=== PATIENT | male | born 1950 | race Asian ===

== ENCOUNTER → 2018-04-19 11:35 | Outpatient (CLI) | payer MEDICARE, MEDICAID, SELFPAY ==
--- NOTE | 2018-04-19 | DI.CT.S_ITS ---
PROCEDURE: CT CHEST WO CON INDICATIONS: PULMONARY NODULES VERES MASS TECHNIQUE: Noncontrast 5 mm thick sections acquired from the pulmonary apices to the posterior costophrenic angles. 7 mm thick coronal and sagittal MIP reformats were then acquired. For radiation dose reduction, the following was used: automated exposure control, adjustment of mA and/or kV according to patient size. COMPARISON: [facility], CT, CT CHEST WO CON, 09/15/2016, 9:07. [facility], CT, CT CHEST WO CON, 02/26/2017, 11:57. FINDINGS: Image quality: Excellent. Lungs and pleura: No acute air space opacities. The lung parenchyma is better visualized than on the most recent comparison CT from 02/26/17. The comparison CT from 09/15/16 is used as reference. There are several small pulmonary nodular radiodensities identical in appearance to those present in September of 2016. No new nodule has developed No pleural effusions or pneumothorax. Central and peripheral airways are patent and normal in caliber. Mediastinum: Heart size is normal. No pericardial effusion. No mediastinal adenopathy by size criteria. Thoracic aorta and central pulmonary arteries are normal in size. Esophagus is normal in caliber. No hiatal hernia. Bones and chest wall: No suspicious bony lesions. No vertebral body compression fractures. No axillary or supraclavicular adenopathy by size criteria. Thyroid gland is not well-visualized by this noncontrast CT. No definite lesion in that area would be suspected. Abdomen: Visualized upper abdominal solid organs and bowel loops appear normal in the absence of contrast. IMPRESSION: Stable appearance of several small benign-appearing pulmonary nodules from September 2016, no followup CT scanning is recommended for these structures. No new nodule has developed. The lung parenchyma is better visualized with reference to the prior study from 2015 than the most recent comparison CT from February of 2017 when some degree of overlying alveolar infiltration was present. Dictated by: Semaj Beverly M.D. on 04/19/2018 at 13:52 Approved by: Semaj Beverly M.D. on 04/19/2018 at 14:29
== END ==
PROVIDERS: Family Provider Family Medicine; PCP Family Medicine; Visit Provider Internal Medicine Critical Care Medicine
DX: R91.8 Other nonspecific abnormal finding of lung field (principal)
CPT/HCPCS: 71250

== ENCOUNTER 2023-09-25 23:45 | Emergency (ER) | payer MEDICARE, MEDICAID, SELFPAY ==
[2023-09-25 23:20] VITALS: BP 143/76; PULSE 98; RESP 18; TEMP 36.6; O2SAT 98
--- NOTE | 2023-09-25 23:45 | DI.RAD.S_ITS ---
PROCEDURE: XR PELVIS 1-2V INDICATIONS: pain after fall TECHNIQUE: Single view(s) of the pelvis acquired. COMPARISON: None. FINDINGS: Bones: No definite fracture. No dislocation. Subtle lucency involving the acetabular region of the left hip may be due to artifact versus nondisplaced acetabular fracture. No suspicious osseous lesions. Soft tissues: Visualized bowel gas pattern is normal. No suspicious soft tissue calcifications. IMPRESSION: No definite fracture seen. However, subtle lucencies of the left acetabular region may represent nondisplaced acetabular fractures. Consider further evaluation with CT if high clinical suspicion for fracture on the left side. Dictated by: Ricky Lanier M.D. on 09/26/2023 at 0:37 Approved by: Ricky Lanier M.D. on 09/26/2023 at 0:38
--- NOTE | 2023-09-25 23:45 | DI.CT.S_ITS ---
PROCEDURE: CT CERVICAL SPINE WO CON INDICATIONS: fall TECHNIQUE: Noncontrast 3 mm thick sections acquired from the skull base to the T4 level. Sagittal and coronal reformats were then constructed. For radiation dose reduction, the following was used: automated exposure control, adjustment of mA and/or kV according to patient size. COMPARISON: None. FINDINGS: Image quality: Excellent. Bones: No acute fractures or dislocations. No acute compression fractures of the vertebral bodies. Craniocervical junction is intact. C1-C2 relationship is preserved. Visualized superior ribs are intact. Moderate-severe multilevel cervical spondylosis with degenerative endplate changes, disc space loss, and endplate osteophyte formation. Findings are most severe at C4-5 and C5-6. There is severe spinal canal stenosis at C4-5 with moderate left greater than right bilateral neuroforaminal stenosis at this level. There is moderate spinal canal stenosis at C5-6 with mild-moderate bilateral neuroforaminal stenosis. No asymmetric widening of the posterior elements/facets. Soft tissues: Prevertebral soft tissues are normal in thickness. No paravertebral hematomas. No apical pneumothoraces. IMPRESSION: 1. CT cervical spine without acute fracture or traumatic malalignment. 2. Moderate-severe multilevel cervical spondylosis most prominent at C4-5 and C5-6 as described above. Dictated by: Ricky Lanier M.D. on 09/26/2023 at 0:40 Approved by: Ricky Lanier M.D. on 09/26/2023 at 0:44
--- NOTE | 2023-09-25 23:45 | DI.RAD.S_ITS ---
PROCEDURE: XR SHOULDER LT MIN 2V INDICATIONS: pain after fall TECHNIQUE: 2 views of the shoulder were acquired. COMPARISON: None. FINDINGS: Bones: No fractures or dislocations. No suspicious bony lesions. Visualized ribs appear intact. Degenerative changes of the acromioclavicular joint. Coracoclavicular and acromioclavicular intervals are maintained. Soft tissues: No suspicious soft tissue calcifications. IMPRESSION: Left shoulder without acute fracture or dislocation. If there is persistent clinical concern for occult fracture given adequate mechanism of injury, consider repeat imaging in 10-14 days. Dictated by: Ricky Lanier M.D. on 09/26/2023 at 1:43 Approved by: Ricky Lanier M.D. on 09/26/2023 at 1:44
--- NOTE | 2023-09-25 23:45 | DI.CT.S_ITS ---
PROCEDURE: CT HEAD/BRAIN WO CON INDICATIONS: fall [facility] head injury TECHNIQUE: Noncontrast 4.5 mm thick angled axial sections acquired from the foramen magnum to the vertex, with coronal and sagittal reformats. For radiation dose reduction, the following was used: automated exposure control, adjustment of mA and/or kV according to patient size. COMPARISON: None. FINDINGS: Image quality: Diagnostic. CSF spaces: Basal cisterns are patent. No extra-axial fluid collections. The ventricles are symmetric in size and shape. Brain: No intracranial bleeds or masses. There is cerebral volume loss for age, with resultant ventricular and sulcal prominence. There are periventricular and deep white matter chronic small vessel ischemic changes. There is intracranial internal carotid artery atherosclerosis. Skull and face: Calvarium and visualized facial bones appear intact, without suspicious lesions. Sinuses: Visualized sinuses and mastoids are clear. IMPRESSION: 1. CT head without acute intracranial abnormalities or acute calvarial fractures. 2. Age-related senescent changes and sequela of chronic small vessel ischemic disease. Dictated by: Ricky Lanier M.D. on 09/26/2023 at 0:39 Approved by: Ricky Lanier M.D. on 09/26/2023 at 0:40
--- NOTE | 2023-09-25 23:51 | ED.GENADULT ---
HPI - General Adult General Chief complaint: Trauma Stated complaint: fall from ladder Time Seen by Provider: 09/25/23 23:45 Source: patient and EMS Mode of arrival: EMS Limitations: no limitations History of Present Illness HPI narrative: Patient is a 72-year-old male. Not on anticoagulation. Arrived by EMS for evaluation of injuries that he sustained after falling at home. Patient was approximately 4 steps up on a ladder (approximately 4 ft). He was working on his garage door. Apparently the garage door moved hitting him causing him to fall. He landed on his left hip and left shoulder. He did hit his head. There most likely was short period of time of the loss of consciousness. was the 1 who found the patient. She contacted EMS. He arrived in a cervical collar and on a backboard. Was complaining of left hip pain and left shoulder pain. He did receive fentanyl by EMS prior to arrival. Patient was reporting leg pain but reports that most of his discomfort is in his left hip. No abdominal pain. No chest pain. No shortness of breath. Related Data Allergies Allergy/AdvReac Type Severity Reaction Status Date / Time No Known Drug Allergies Allergy Verified 09/26/23 00:10 Review of Systems Review of Systems ROS Unobtainable: All systems reviewed & are unremarkable except as noted in HPI and below Patient History Medical History Coronary artery disease Diabetes Exam Initial Vital Signs Initial Vital Signs: Vital Signs Temperature 97.9 F 09/25/23 23:20 Pulse Rate 98 H 09/25/23 23:20 Respiratory Rate 18 09/25/23 23:20 Blood Pressure 143/76 H 09/25/23 23:20 Pulse Oximetry 98 09/25/23 23:20 Oxygen Delivery Method Room Air 09/25/23 23:20 Const General: cooperative and No ill appearing HENMT Head: normal to inspection and normocephalic Face and sinus: normal facial exam Chest Chest: No crepitus and No tenderness Resp Effort & Inspection: normal respiratory effort Auscultation: clear to auscultation bilaterally Cardio Rate: regular rate Rhythm: regular rhythm GI Palpation: soft, No firm, No guarding and No tender Back/Spine/Pelvis Cervical Spine: collar present Thoracic/Lumbar Spine: No thoracic spinal tenderness and No lumbar spinal tenderness Neuro General: patient alert and patient awake Speech: speech normal Extrem Other: Discomfort with palpation of the left hip. He was placed with the hip and slight forward flexion and at bed knee for comfort. Exam of right lower extremity is unremarkable. Right upper extremities unremarkable. Discomfort with palpation of the left shoulder with pain with movement. Left elbow and left wrist unremarkable. Scores GCS Alba coma scale eye opening: Spontaneous Alba coma scale verbal response: Orientated Yoel coma scale motor response: Obey commands Yoel coma scale total score: 15 Course Orders Ordered: ED Orders 09/25/23 23:45 CT cervical spine wo con Stat CT head/brain wo con Stat XR pelvis 1-2V Stat XR shoulder LT min 2V Stat 09/25/23 23:55 Complete Blood Count AUTO DIFF Stat Comprehensive Metabolic Panel Stat Lipase Stat 09/26/23 00:15 CT pelvis wo con Stat 09/26/23 00:50 COVID19 -Nasal RAPID Stat Discontinued Medications Hydromorphone HCl (Hydromorphone 0.5 Mg Inj) 0.5 mg IV NOW ONE Stop: 09/26/23 00:07 Last Admin: 09/26/23 00:09 Dose: 0.5 mg Documented By: CORY Hydromorphone HCl (Hydromorphone 0.5 Mg Inj) 0.5 mg IV NOW ONE Stop: 09/26/23 00:27 Last Admin: 09/26/23 00:29 Dose: 0.5 mg Documented By: CORY Hydromorphone HCl (Hydromorphone 0.5 Mg Inj) 0.5 mg IV NOW ONE Stop: 09/26/23 01:56 Last Admin: 09/26/23 01:58 Dose: 0.5 mg Documented By: CORY Ondansetron HCl (Ondansetron 4 Mg/2 Ml Inj) 4 mg IV NOW ONE Stop: 09/25/23 23:51 Last Admin: 09/26/23 00:11 Dose: 4 mg Documented By: CORY Ondansetron HCl (Ondansetron 4 Mg/2 Ml Inj) 4 mg IV NOW ONE Stop: 09/26/23 00:13 Last Admin: 09/26/23 00:23 Dose: 4 mg Documented By: CORY Vital Signs Vital signs: Vital Signs - 8 hr 09/25/23 23:20 09/26/23 00:25 09/26/23 00:30 Temperature 97.9 F Pulse Rate 98 H 98 H 91 H Respiratory Rate 18 17 13 Blood Pressure 143/76 H Pulse Oximetry 98 97 96 Oxygen Delivery Method Room Air 09/26/23 00:35 09/26/23 00:35 09/26/23 01:00 Temperature Pulse Rate 97 H 96 H Respiratory Rate 14 19 Blood Pressure 105/64 Pulse Oximetry 96 98 Oxygen Delivery Method 09/26/23 01:00 09/26/23 01:30 09/26/23 01:30 Temperature Pulse Rate 96 H Respiratory Rate 19 Blood Pressure 112/66 98/61 Pulse Oximetry 97 Oxygen Delivery Method 09/26/23 01:45 09/26/23 01:45 Temperature Pulse Rate 95 H Respiratory Rate 17 Blood Pressure 119/64 Pulse Oximetry 97 Oxygen Delivery Method Medical Decision Making Lab Data Lab results reviewed: Yes I reviewed the patient's lab results. 09/25/23 23:55 09/25/23 23:55 Labs: Lab Results 09/25/23 09/26/23 Range/Units 23:55 00:50 WBC 16.4 H (4.5-11.0) X10^3/uL RBC 4.37 L (4.5-5.9) X10^6/uL Hgb 14.1 (13.5-17.5) g/dL Hct 42.2 (41-53) % MCV 96.5 (80-100) fL MCH 32.2 (26-34) PG MCHC 33.4 (30-36) % RDW 13.7 (11.6-14.8) % Plt Count 214 (150-400) X10^3/uL Neut % (Auto) 79.0 H (50-75) % Lymph % (Auto) 12.3 L (25-40) % Larue % (Auto) 8.0 (3-14) % Eos % (Auto) 0.2 L (2-4) % Baso % (Auto) 0.5 (0-2) % Neut # (Auto) 53737 H (5579-7382) /uL Lymph # (Auto) 2000 (2014-4660) /uL Larue # (Auto) 1300 H (0-900) /uL Eos # (Auto) 0 (0-450) /uL Baso # (Auto) 100 (0-100) /uL Sodium 136 L (137-145) mmol/L Potassium 4.5 (3.4-5.1) mmol/L Chloride 103 (98-107) mmol/L Carbon Dioxide 21 L (22-32) mmol/L BUN 30 H (9-20) mg/dL Creatinine 1.20 (0.66-1.25) mg/dL Estimated GFR > 60 (>60) mL/min BUN/Creatinine Ratio 25.0 H (6-22) Glucose 160 H (80-110) mg/dL Calcium 9.2 (8.4-10.2) mg/dL Total Bilirubin 1.2 (0.2-1.3) mg/dL AST 40 (17-59) IU/L ALT 25 (<50) IU/L Alkaline Phosphatase 55 (38-126) U/L Total Protein 7.2 (6.3-8.2) g/dL Albumin 4.1 (3.5-5.0) g/dL Globulin 3.1 (1.7-4.1) g/dL Albumin/Globulin Ratio 1.3 (1.0-2.8) Lipase 61 (23-300) U/L SARS-CoV-2 (PCR) Negative (Negative) Point of Care Testing Glucose POC 166 Point of care testing: Point of Care Testing Glucose POC 166 Imaging Data Extremity x-ray #1: Radiologist's Impression: PROCEDURE: XR PELVIS 1-2V INDICATIONS: pain after fall TECHNIQUE: Single view(s) of the pelvis acquired. COMPARISON: None. FINDINGS: Bones: No definite fracture. No dislocation. Subtle lucency involving the acetabular region of the left hip may be due to artifact versus nondisplaced acetabular fracture. No suspicious osseous lesions. Soft tissues: Visualized bowel gas pattern is normal. No suspicious soft tissue calcifications. IMPRESSION: No definite fracture seen. However, subtle lucencies of the left acetabular region may represent nondisplaced acetabular fractures. Consider further evaluation with CT if high clinical suspicion for fracture on the left side. CT scan - head: Radiologist's Impression: PROCEDURE: CT HEAD/BRAIN WO CON INDICATIONS: fall iwth head injury TECHNIQUE: Noncontrast 4.5 mm thick angled axial sections acquired from the foramen magnum to the vertex, with coronal and sagittal reformats. For radiation dose reduction, the following was used: automated exposure control, adjustment of mA and/or kV according to patient size. COMPARISON: None. FINDINGS: Image quality: Diagnostic. CSF spaces: Basal cisterns are patent. No extra-axial fluid collections. The ventricles are symmetric in size and shape. Brain: No intracranial bleeds or masses. There is cerebral volume loss for age, with resultant ventricular and sulcal prominence. There are periventricular and deep white matter chronic small vessel ischemic changes. There is intracranial internal carotid artery atherosclerosis. Skull and face: Calvarium and visualized facial bones appear intact, without suspicious lesions. Sinuses: Visualized sinuses and mastoids are clear. IMPRESSION: 1. CT head without acute intracranial abnormalities or acute calvarial fractures. 2. Age-related senescent changes and sequela of chronic small vessel ischemic disease. CT - cervical spine: Radiologist's Impression: PROCEDURE: CT CERVICAL SPINE WO CON INDICATIONS: fall TECHNIQUE: Noncontrast 3 mm thick sections acquired from the skull base to the T4 level. Sagittal and coronal reformats were then constructed. For radiation dose reduction, the following was used: automated exposure control, adjustment of mA and/or kV according to patient size. COMPARISON: None. FINDINGS: Image quality: Excellent. Bones: No acute fractures or dislocations. No acute compression fractures of the vertebral bodies. Craniocervical junction is intact. C1-C2 relationship is preserved. Visualized superior ribs are intact. Moderate-severe multilevel cervical spondylosis with degenerative endplate changes, disc space loss, and endplate osteophyte formation. Findings are most severe at C4-5 and C5-6. There is severe spinal canal stenosis at C4-5 with moderate left greater than right bilateral neuroforaminal stenosis at this level. There is moderate spinal canal stenosis at C5-6 with mild-moderate bilateral neuroforaminal stenosis. No asymmetric widening of the posterior elements/facets. Soft tissues: Prevertebral soft tissues are normal in thickness. No paravertebral hematomas. No apical pneumothoraces. IMPRESSION: 1. CT cervical spine without acute fracture or traumatic malalignment. 2. Moderate-severe multilevel cervical spondylosis most prominent at C4-5 and C5-[address] pelvis: Radiologist's Impression: PROCEDURE: CT PEL WO CON INDICATIONS: Left acetabular fracture TECHNIQUE: Noncontrast 3 mm axial sections acquired through the bony pelvis, with coronal and sagittal reformatting. COMPARISON: None. FINDINGS: Image quality: Diagnostic Bones: Severely comminuted left pelvic fracture involving the acetabulum. Fractures appear to involve both the superior, anterior, and posterior espino of the acetabulum. Comminuted fracture involving the base of the left superior pubic ramus. Transverse fracture of the left inferior pubic ramus. Bilateral sacroiliac joints are maintained. Visualized proximal left femur and femoral head appear intact. No suspicious osseous lesions. Soft tissues: There is surrounding soft tissue swelling of the left hip. There is swelling of the left obturator internus muscle with inflammation extending into the left lower pelvis. There is asymmetric thickening of the left iliopsoas. IMPRESSION: Severely comminuted left acetabular fracture as well as the base of the left superior pubic ramus. There is also a nondisplaced fracture of the left inferior pubic ramus. Associated surrounding soft tissue swelling as well as suspected intramuscular hematoma of the left obturator internus muscle and likely left iliopsoas with edema extending into the adjacent left lower pelvis. Shoulder x-ray: Radiologist's Impression: PROCEDURE: XR SHOULDER LT MIN 2V INDICATIONS: pain after fall TECHNIQUE: 2 views of the shoulder were acquired. COMPARISON: None. FINDINGS: Bones: No fractures or dislocations. No suspicious bony lesions. Visualized ribs appear intact. Degenerative changes of the acromioclavicular joint. Coracoclavicular and acromioclavicular intervals are maintained. Soft tissues: No suspicious soft tissue calcifications. IMPRESSION: Left shoulder without acute fracture or dislocation. If there is persistent clinical concern for occult fracture given adequate mechanism of injury, consider repeat imaging in 10-14 days. [facility] Narrative Medical decision making narrative: 72-year-old male. Not on blood thinners. Fell approximately 4 ft. He did hit his head. There was loss of consciousness. Head CT and cervical spine CT unremarkable. Cervical collar was removed. Has no abdominal tenderness. No back pain. Neurovascularly intact. Alert and oriented x3. GCS of 15. Had significant left hip pain. AP pelvis shows what appears to be an acetabular fracture. CT scan confirms acetabular fracture and left inferior pubic rami fracture. [facility] Patient is stable for transport. Discussed the case with Dr. Fink at [facility] who accepts the patient. Discussed the need for transfer with the patient and his at bedside. They expressed understanding and agreement with plan. Discharge Plan Departure Patient Disposition: Xfer Acute Care Hospital Clinical Impression: Closed left acetabular fracture, Fracture of left inferior pubic ramus Referrals: Ramonita Lundy MD [Primary Care Provider] -
[2023-09-26] VITALS (9 sets, daily range): BP systolic 98–130; BP diastolic 61–72; PULSE 91–98; RESP 13–19; O2SAT 96–98
--- NOTE | 2023-09-26 00:04 | PC.NURSE ---
DR Snell removed the backboard at 2330 while c-spine precautions were maintained.
[2023-09-26] MEDS: HYDROMORPHONE 0.5 MG INJ IV ×4 (00:09→02:33)
[2023-09-26] MEDS: ONDANSETRON 4 MG/2 ML INJ IV ×2 (00:11→00:23)
[2023-09-26 00:13] LABS: Add Manual Diff / Slide Review NO; Basophils Absolute Auto 100 /uL (0-100); Basophils Percent Auto 0.5 % (0-2); Eosinophils Absolute Auto 0 /uL (0-450); Eosinophils Percent Auto 0.2 % (2-4); Hematocrit 42.2 % (41-53); Hemoglobin 14.1 g/dL (13.5-17.5); Lymphocytes Absolute Auto 2000 /uL (1100-4500); Lymphocytes Percent Auto 12.3 % (25-40); Mean Corpuscular HGB Conc 33.4 % (30-36); Mean Corpuscular Hemoglobin 32.2 PG (26-34); Mean Corpuscular Volume 96.5 fL (80-100); Monocytes Absolute Auto 1300 /uL (0-900); Neutrophils Absolute Auto 12900 /uL (1500-7000); Platelet Count 214 X10^3/uL (150-400); Red Blood Cell Count 4.37 X10^6/uL (4.5-5.9); Red Cell Distribution Width 13.7 % (11.6-14.8); White Blood Cell Count 16.4 X10^3/uL (4.5-11.0)
--- NOTE | 2023-09-26 00:15 | DI.CT.S_ITS ---
PROCEDURE: CT PEL WO CON INDICATIONS: Left acetabular fracture TECHNIQUE: Noncontrast 3 mm axial sections acquired through the bony pelvis, with coronal and sagittal reformatting. COMPARISON: None. FINDINGS: Image quality: Diagnostic Bones: Severely comminuted left pelvic fracture involving the acetabulum. Fractures appear to involve both the superior, anterior, and posterior espino of the acetabulum. Comminuted fracture involving the base of the left superior pubic ramus. Transverse fracture of the left inferior pubic ramus. Bilateral sacroiliac joints are maintained. Visualized proximal left femur and femoral head appear intact. No suspicious osseous lesions. Soft tissues: There is surrounding soft tissue swelling of the left hip. There is swelling of the left obturator internus muscle with inflammation extending into the left lower pelvis. There is asymmetric thickening of the left iliopsoas. IMPRESSION: Severely comminuted left acetabular fracture as well as the base of the left superior pubic ramus. There is also a nondisplaced fracture of the left inferior pubic ramus. Associated surrounding soft tissue swelling as well as suspected intramuscular hematoma of the left obturator internus muscle and likely left iliopsoas with edema extending into the adjacent left lower pelvis. Dictated by: Ricky Lanier M.D. on 09/26/2023 at 0:44 Approved by: Ricky Lanier M.D. on 09/26/2023 at 0:52
[2023-09-26 00:23] LABS: Alanine Aminotransferase 25 IU/L (<50); Albumin 4.1 g/dL (3.5-5.0); Albumin Globulin Ratio 1.3 (1.0-2.8); Alkaline Phosphatase 55 U/L (38-126); Aspartate Aminotransferase 40 IU/L (17-59); Bilirubin Total 1.2 mg/dL (0.2-1.3); Blood Urea Nitrogen 30 mg/dL (9-20); Calcium 9.2 mg/dL (8.4-10.2); Carbon Dioxide 21 mmol/L (22-32); Chloride 103 mmol/L (98-107); Estimated Glomerular Filt Rate > 60 mL/min (>60); Globulin 3.1 g/dL (1.7-4.1); Glucose 160 mg/dL (80-110); HEMOLYSIS 46 (0-50); Lipase 61 U/L (23-300); Potassium 4.5 mmol/L (3.4-5.1); Sodium 136 mmol/L (137-145); Total Protein 7.2 g/dL (6.3-8.2)
--- NOTE | 2023-09-26 00:32 | PC.NURSE ---
returned from CT pt awake and alert at bedside, pt given more medication for pain call pérez in reach
[2023-09-26 01:25] LABS: COVID19 -Nasal RAPID Negative (Negative)
== END 2023-09-26 02:50 | disposition short-term general hospital (02) ==
PROVIDERS: Emergency Provider Emergency Medicine; Family Provider Family Medicine; PCP Family Medicine
DX: S32.402A Unspecified fracture of left acetabulum, initial encounter for closed fracture (principal); S32.592A Other specified fracture of left pubis, initial encounter for closed fracture; S06.9X9A Unspecified intracranial injury with loss of consciousness of unspecified duration, initial encounter; M25.512 Pain in left shoulder; W11.XXXA Fall on and from ladder, initial encounter; Z11.52 Encounter for screening for COVID-19
CPT/HCPCS: 36415; 70450; 72125; 72170; 72192; 73030; 80053; 83690; 85025; 87635; 96374; 96375; 96376; 99284; 99285; C9803; J1170; J2405

== ENCOUNTER 2024-10-25 13:18 | Emergency (ER) | payer MEDICARE, MEDICAID, SELFPAY ==
[2024-10-25] VITALS (17 sets, daily range): BP systolic 119–158; BP diastolic 58–79; PULSE 60–77; RESP 15–22; TEMP 36.6; O2SAT 94–98; BMI 23.9
--- NOTE | 2024-10-25 13:23 | DI.RAD.S_ITS ---
PROCEDURE: XR CHEST 1V INDICATIONS: chest pain TECHNIQUE: One view of the chest was acquired. COMPARISON: (Prior imaging is not available for review from the archive at the time of this dictation.) FINDINGS: Surgical changes and devices: Left shoulder arthroplasty hardware is present Lungs and pleura: An incomplete inspiratory result is noted, causing a crowded appearance to the lung markings. No focal infiltrates are seen. No pneumothorax or significant pleural effusions are seen. Mediastinum: Mediastinal contours appear normal. Heart size is normal. Bones and chest wall: No suspicious bony lesions. Age-appropriate bony degenerative changes are seen. Overlying soft tissues appear unremarkable. IMPRESSION: Low lung volumes, without an acute abnormality seen by plain film. Postoperative and degenerative changes are seen. Dictated by: Charanjit Rahman M.D. on 10/25/2024 at 13:12 Approved by: Charanjit Rahman M.D. on 10/25/2024 at 13:13
--- NOTE | 2024-10-25 13:28 | EKG_ITS ---
[address] [address] Test Date: 2024-10-25 Pat Name: Frank Resendez Department: Room: Gender: Male [employer]: LINDSAY : 1950 Requested By: Order Number: [id number] Reading MD: Dilip Hyatt MD Measurements Intervals Elbe Rate: 67 P: 54 NM: 170 QRS: 50 QRSD: 80 T: 34 QT: 388 QTc: 409 Interpretive Statements Normal sinus rhythm Electronically Signed On 10-26-2024 8:47:43 PST by Dilip Hyatt MD
[2024-10-25 13:36] LABS: Add Manual Diff / Slide Review NO; Basophils Absolute Auto 0 /uL (0-100); Basophils Percent Auto 0.6 % (0-2); Eosinophils Absolute Auto 200 /uL (0-450); Eosinophils Percent Auto 3.1 % (2-4); Hematocrit 42.8 % (41-53); Hemoglobin 14.3 g/dL (13.5-17.5); Lymphocytes Absolute Auto 1600 /uL (1100-4500); Lymphocytes Percent Auto 21.8 % (25-40); Mean Corpuscular HGB Conc 33.5 % (30-36); Mean Corpuscular Hemoglobin 32.3 PG (26-34); Mean Corpuscular Volume 96.6 fL (80-100); Monocytes Absolute Auto 500 /uL (0-900); Monocytes Percent Auto 7.3 % (3-14); Neutrophils Absolute Auto 5000 /uL (1500-7000); Neutrophils Percent Auto 67.2 % (50-75); Platelet Count 181 X10^3/uL (150-400); Red Blood Cell Count 4.43 X10^6/uL (4.5-5.9); Red Cell Distribution Width 14.3 % (11.6-14.8); White Blood Cell Count 7.4 X10^3/uL (4.5-11.0)
[2024-10-25 13:45] LABS: PTT Partial Thromboplastin Tim 27 SECONDS (25.1-36.5)
[2024-10-25 13:46] LABS: Alanine Aminotransferase 27 IU/L (<50); Albumin 4.1 g/dL (3.5-5.0); Albumin Globulin Ratio 1.5 (1.0-2.8); Alkaline Phosphatase 55 U/L (38-126); Aspartate Aminotransferase 28 IU/L (17-59); BUN Creatinine Ratio 16.3 (6-22); Bilirubin Total 0.8 mg/dL (0.2-1.3); Blood Urea Nitrogen 20 mg/dL (9-20); Calcium 9.2 mg/dL (8.4-10.2); Carbon Dioxide 25 mmol/L (22-32); Chloride 105 mmol/L (98-107); Creatine Kinase 70 U/L (55-170); Estimated Glomerular Filt Rate > 60 mL/min (>60); Globulin 2.8 g/dL (1.7-4.1); Glucose 193 mg/dL (80-110); HEMOLYSIS < 15 (0-50); Lipase 197 U/L (23-300); Magnesium 2.1 mg/dL (1.6-2.3); Potassium 4.3 mmol/L (3.4-5.1); Sodium 138 mmol/L (137-145); Total Protein 6.9 g/dL (6.3-8.2)
[2024-10-25 13:58] LABS: NT-proBNP (BNP-Adult 18+) 50 pg/mL (<125); Troponin I 0.035 ng/mL (0.01-0.034)
--- NOTE | 2024-10-25 14:55 | ED.CHESTPAIN ---
HPI - Chest Pain General Chief Complaint: Chest Pain Stated Complaint: Chest Pain Time Seen by Provider: 10/25/24 14:28 Source: patient and EMS Mode of arrival: EMS History of Present Illness HPI narrative: Patient 74-year-old male history of DM, HTN, coronary artery disease with 2 stents 18 years ago presenting today with chest pain. He has noted he has had some intermittent chest discomfort ongoing for awhile no real provocation or palliation. However last night he noticed increased pain he thought it was heartburn felt some burning into his throat. However this morning he had a pain all across his chest and in right arm achiness. It was constant in nature. Did not go away until EMS gave him 2 nitroglycerin. He took an aspirin prior to arrival. He no longer is having any pain. He does not have a switchboard wirer. It though he had some sort of stress test but unclear when. He is followed by the [facility] Related Data Allergies Allergy/AdvReac Type Severity Reaction Status Date / Time No Known Drug Allergies Allergy Verified 10/25/24 13:30 Patient History Medical History Coronary artery disease Diabetes Social History Smoking Status: Never smoker Smoking Status: Never smoker Exam Initial Vital Signs Initial Vital Signs: Vital Signs Temperature 98 F 10/25/24 13:26 GENERAL: Alert well-appearing 74-year-old male and in no acute distress. HEENT: Head atraumatic,EOMI, pupils reactive, face symmetric, moist mucous membranes CARDIOVASCULAR: Regular rate and rhythm without murmurs, rubs or gallops. RESPIRATORY: Breath sounds equal bilaterally, no wheezes rales or rhonchi. ABDOMEN: Soft, nontender. Normoactive bowel sounds all 4 quadrants. No guarding or rebound. EXTREMITIES: Normal range of motion, no clubbing or edema. Neurovascularly intact NEUROLOGICAL: Alert and oriented x4. SKIN: Warm, dry, no laceration, no petechiae, no rashes or lesions. Scores HEART Score Heart Score history: Moderately Suspicious Heart Score EKG: Normal Heart Score Age: > or = 65 years old Heart Score risk factors: > 3 risk factors or hx of atherosclerotic disease Heart Score troponin: < or = to normal limit Heart Score Total: 5 Course Orders Ordered: ED Orders 10/25/24 13:23 XR chest 1V Stat EKG-12 Lead Stat 10/25/24 13:27 Complete Blood Count AUTO DIFF Stat Comprehensive Metabolic Panel Stat Lipase Stat Magnesium Stat NT-proBNP (BNP-Adult 18+) Stat PTT Partial Thromboplastin Ash Stat Prothrombin Time INR Stat Troponin & CK Cardiac Panel Stat 10/25/24 16:25 Trop I [Troponin I] Stat 10/25/24 17:40 EKG-12 Lead Stat 10/25/24 17:56 PTT Partial Thromboplastin Ash Q6H 10/25/24 23:45 PTT Partial Thromboplastin Ash Q6H 10/26/24 05:00 Hemoglobin and Hematocrit DAILY Platelet Count DAILY 10/26/24 05:45 PTT Partial Thromboplastin Ash Q6H 10/26/24 11:45 PTT Partial Thromboplastin Ash Q6H 10/27/24 05:00 Hemoglobin and Hematocrit DAILY Platelet Count DAILY Heparin Sodium/Dextrose (Heparin Drip) 25,000 unit in 500 mls @ 14.696 mls/hr IV CONT ROBERT; Protocol Last Admin: 10/25/24 18:15 Dose: 12 units/kg/hr, 14.7 mls/hr Documented By: JAZMINE Co-signed By: SB Discontinued Medications Heparin Sodium (Porcine) (Heparin 5,000 Unit/Ml Vial) 3,500 unit 60 unit/kg (3500 unit) IV NOW ONE Stop: 10/25/24 17:32 Last Admin: 10/25/24 18:13 Dose: 3,500 unit Documented By: JAZMINE Vital Signs Vital signs: Vital Signs - 8 hr 10/25/24 13:26 10/25/24 13:30 10/25/24 13:30 Temperature 98 F Pulse Rate 74 Respiratory Rate Blood Pressure 120/61 Pulse Oximetry 96 Oxygen Delivery Method 10/25/24 14:00 10/25/24 14:01 10/25/24 14:01 Temperature Pulse Rate 68 69 Respiratory Rate Blood Pressure 119/58 L Pulse Oximetry 95 95 Oxygen Delivery Method 10/25/24 14:30 10/25/24 14:30 10/25/24 15:00 Temperature Pulse Rate 65 64 Respiratory Rate Blood Pressure 130/61 Pulse Oximetry 95 98 Oxygen Delivery Method 10/25/24 15:01 10/25/24 15:01 10/25/24 15:30 Temperature Pulse Rate 63 68 Respiratory Rate 21 19 Blood Pressure 158/70 H Pulse Oximetry 98 98 Oxygen Delivery Method 10/25/24 15:30 10/25/24 16:00 10/25/24 16:00 Temperature Pulse Rate 60 Respiratory Rate 15 Blood Pressure 129/61 155/73 H Pulse Oximetry 96 Oxygen Delivery Method 10/25/24 16:30 10/25/24 16:30 10/25/24 17:00 Temperature Pulse Rate 68 71 Respiratory Rate 22 20 Blood Pressure 139/79 Pulse Oximetry 98 96 Oxygen Delivery Method 10/25/24 17:00 10/25/24 17:31 10/25/24 17:32 Temperature Pulse Rate 72 69 Respiratory Rate 20 Blood Pressure 129/64 Pulse Oximetry 95 Oxygen Delivery Method 10/25/24 17:32 10/25/24 18:00 10/25/24 18:30 Temperature Pulse Rate 74 77 Respiratory Rate 20 17 Blood Pressure 125/60 Pulse Oximetry 96 96 Oxygen Delivery Method 10/25/24 18:30 10/25/24 19:00 10/25/24 19:00 Temperature Pulse Rate 68 Respiratory Rate 18 Blood Pressure 138/67 139/68 Pulse Oximetry 97 Oxygen Delivery Method 10/25/24 19:30 10/25/24 19:30 Temperature Pulse Rate 67 Respiratory Rate 18 Blood Pressure 131/69 Pulse Oximetry 94 Oxygen Delivery Method Room Air MDM - Chest Pain Lab Data 10/25/24 13:27 10/25/24 13:27 Labs: Lab Results 10/25/24 10/25/24 10/25/24 Range/Units 13:27 16:25 17:56 WBC 7.4 (4.5-11.0) X10^3/uL RBC 4.43 L (4.5-5.9) X10^6/uL Hgb 14.3 (13.5-17.5) g/dL Hct 42.8 (41-53) % MCV 96.6 (80-100) fL MCH 32.3 (26-34) PG MCHC 33.5 (30-36) % RDW 14.3 (11.6-14.8) % Plt Count 181 (150-400) X10^3/uL Neut % (Auto) 67.2 (50-75) % Lymph % (Auto) 21.8 L (25-40) % Emmet % (Auto) 7.3 (3-14) % Eos % (Auto) 3.1 (2-4) % Baso % (Auto) 0.6 (0-2) % Neut # (Auto) 5000 (2326-1082) /uL Lymph # (Auto) 1600 (1296-9646) /uL Emmet # (Auto) 500 (0-900) /uL Eos # (Auto) 200 (0-450) /uL Baso # (Auto) 0 (0-100) /uL PT 11.0 (9.4-12.5) SECONDS INR 1.0 (0.9-1.3) APTT 27 29 (25.1-36.5) SECONDS Sodium 138 (137-145) mmol/L Potassium 4.3 (3.4-5.1) mmol/L Chloride 105 (98-107) mmol/L Carbon Dioxide 25 (22-32) mmol/L BUN 20 (9-20) mg/dL Creatinine 1.23 (0.66-1.25) mg/dL Estimated GFR > 60 (>60) mL/min BUN/Creatinine Ratio 16.3 (6-22) Glucose 193 H (80-110) mg/dL Calcium 9.2 (8.4-10.2) mg/dL Magnesium 2.1 (1.6-2.3) mg/dL Total Bilirubin 0.8 (0.2-1.3) mg/dL AST 28 (17-59) IU/L ALT 27 (<50) IU/L Alkaline Phosphatase 55 (38-126) U/L Total Creatine Kinase 70 (55-170) U/L Troponin I 0.035 H 0.463 H* (0.01-0.034) ng/mL NT-Pro-B Natriuret Pep 50 (<125) pg/mL Total Protein 6.9 (6.3-8.2) g/dL Albumin 4.1 (3.5-5.0) g/dL Globulin 2.8 (1.7-4.1) g/dL Albumin/Globulin Ratio 1.5 (1.0-2.8) Lipase 197 (23-300) U/L Imaging Data Chest x-ray: Radiologist's Impression: PROCEDURE: XR CHEST 1V INDICATIONS: chest pain TECHNIQUE: One view of the chest was acquired. COMPARISON: (Prior imaging is not available for review from the archive at the time of this dictation.) FINDINGS: Surgical changes and devices: Left shoulder arthroplasty hardware is present Lungs and pleura: An incomplete inspiratory result is noted, causing a crowded appearance to the lung markings. No focal infiltrates are seen. No pneumothorax or significant pleural effusions are seen. Mediastinum: Mediastinal contours appear normal. Heart size is normal. Bones and chest wall: No suspicious bony lesions. Age-appropriate bony degenerative changes are seen. Overlying soft tissues appear unremarkable. IMPRESSION: Low lung volumes, without an acute abnormality seen by plain film. Postoperative and degenerative changes are seen. Dictated by: Charanjit Rahman M.D. on 10/25/2024 at 13:12 ECG Data Attestation: I personally reviewed and interpreted this ECG as follows: Prior ECG tracings: not available for review Interpretation: Normal sinus rhythm rate 67 PA interval 170 QRS 80 QTC 409 Q-wave noted in inferior leads 3 and AVF without acute ST changes no priors to compare EKG 2. Sinus rhythm rate to with persistent Q-waves inferiorly he he changes MDM Narrative Medical decision making narrative: [facility] CC: Chest pain Complicating co-morbidities: Diabetes hypertension hyperlipidemia coronary artery disease Medical records reviewed: No priors Differential considered: Acute coronary syndrome, NSTEMI Exam documented above, pertinent findings include: Alert well-appearing 74-year-old male Lab Test results independently reviewed as above. Pertinent findings: Troponin 0.035--> 0.46 Creatinine 1.2 which is baseline Other electrolytes and labs within normal limits Independently reviewed EKG as above Q-wave noted in inferior leads no acute ST changes or depressions no priors to compare No significant changes repeat Imaging studies independently reviewed: Chest x-ray low lung volumes but no acute process Consultations: 17:35 [facility] updated symptoms test results agrees with heparin drip and need for transfer for higher level of care 1829 Dr. Coffman, cardiology at [facility] updated on symptoms test results and accepts patient. Awaiting bed placement 1844Dr. Wang, hospitalist at updated on symptoms test results accepts patient. Patient has bed assignment at Treatments: Heparin Re-evaluations: Patient has no recurrence of chest pain Discussion: 74-year-old male history of known coronary artery disease with 2 prior stents diabetes presenting today with chest pain. He did have 2 nitroglycerin with EMS without recurrent chest pain here. Initial troponin indeterminate at 0.035 with 3 hour repeat is 0.46. He has no EKGs changes. We do not have cardiology services at this facility. Multiple switchboard wirer agree with .transfer Patient ultimately accepted at [facility] Critical Care Time Critical Care Time Critical Care Time: Yes Total Critical Care Time: 35 Attestation: The high probability of a clinically significant, sudden or life threatening deterioration of the [cardiovascular] system(s) required my full and direct attention, intervention and personal management. The aggregate critical care time was 35 minutes. This time is in addition to time spent performing reported procedures but includes the following: [x] Data Review and interpretation [x] Patient assessment and monitoring of vital signs [x] Documentation [x] Medication orders and management Discharge Plan Departure Patient Disposition: [facility] Clinical Impression: Acute non-ST elevation myocardial infarction (NSTEMI) Referrals: Ramonita Lundy MD [Primary Care Provider] -
--- NOTE | 2024-10-25 15:42 | PC.NURSE ---
Midline chest pain. Given 1 nitro en route that has seemed to decrease pt pain. Pt reports taking 324 [employer]SE [employer]ITION[employer]. Respirations regular and unlabored. Pt ambulates w/o issue.
--- NOTE | 2024-10-25 16:33 | PC.NURSE ---
Pt further explains his chest pain started when he was eating this morning and the pain went across his chest and down his right arm. Currently pt is having no pain.
[2024-10-25 17:29] LABS: Troponin I 0.463 ng/mL (0.01-0.034)
--- NOTE | 2024-10-25 17:37 | EKG_ITS ---
[address] [address] Test Date: 2024-10-25 Pat Name: Frank Resendez Department: Room: Gender: Male Ssn/Ssbn Assistant Navigator: JAZMINE : 1950 Requested By: Order Number: [id number] Reading MD: Dilip Hyatt MD Measurements Intervals [place] Rate: 72 P: 63 NV: 174 QRS: 56 QRSD: 90 T: 23 QT: 386 QTc: 422 Interpretive Statements Normal sinus rhythm Possible Inferior infarct , age undetermined Electronically Signed On 10-26-2024 8:48:07 PST by Dilip Hyatt MD
[2024-10-25] MEDS: HEPARIN 5,000 UNIT/ML VIAL 3500 UNIT IV (18:13)
[2024-10-25] MEDS: HEPARIN DRIP 25,000 UNIT/500 ML IV.SOLN 14.7 UNIT IV (18:15)
[2024-10-25 18:43] LABS: PTT Partial Thromboplastin Tim 29 SECONDS (25.1-36.5)
--- NOTE | 2024-10-25 18:45 | PC.NURSE ---
[facility] ETA 1919 Nurse report [phone] Floor 8 Transfer Requests: [facility] - called house supervisory at 1739 and spoke with Tamar, No beds available not taking transfers at this time. [facility] - called transfer center at 1810 and spoke with Jess, face sheet and images pushed, no beds available and not taking transfers at this time. [facility] - called transfer center at 1744 and spoke with Dagoberto, face sheet and images pushed, patient was waitlisted and eventually cancelled due to acceptance and . [facility] - called transfer center at 1756 and spoke with Sharon, face sheet and images pushed, patient transfer was cancelled due to acceptance at . [facility] - called transfer center at [address], Face sheet and images pushed, DOC to DOC done, patient accepted with at [facility] [place] location at 1843. [facility] set up with an ETA of 1919, nurse report number [phone] and going to floor 8. [facility] called transfer center at 181 and spoke with Jessica, transfer request cancelled due to acceptance at .
--- NOTE | 2024-10-25 19:04 | PC.NURSE ---
Pt remains asymptomatic from CP. Respirations regular and unlabored. Heparin gtt infusing. GCS 15; no signs of neuro deficits. Pt remains free from bleeding.
== END 2024-10-25 19:51 | disposition short-term general hospital (02) ==
PROVIDERS: Emergency Provider Emergency Medicine; Family Provider Family Medicine; PCP Family Medicine
DX: I21.4 Non-ST elevation (NSTEMI) myocardial infarction (principal); R07.9 Chest pain, unspecified
CPT/HCPCS: 71045; 80053; 82550; 83690; 83735; 83880; 84484; 85025; 85610; 85730; 93005; 93010; 96365; 96366; 96375; 99283; 99291; J1644